=== PATIENT | female | born 1965 | race Caucasian/White ===

== ENCOUNTER 2017-10-12 19:01 | Emergency (ER) | payer OTHER ==
[2017-10-12 19:08] VITALS: BMI 34.9
[2017-10-12] MEDS ORDERED: SOLU-Medrol 125 MG VIAL IVP ONE (19:42)
[2017-10-12] MEDS ORDERED: SOLU-Medrol 125 MG VIAL ONE (19:43)
[2017-10-12] MEDS ORDERED: DUONEB 0.5 MG/3 MG NEB SCH (19:45)
[2017-10-12] MEDS ORDERED: DUONEB 0.5 MG/3 MG ONE (19:48)
--- NOTE | 2017-10-12 20:05 | DR.GENAD ---
HPI - PCP Primary Care Physician: nfd - Complaint/Symptoms Chief Complaint Doctors Comments: Patient with a history of asthma, gave herself two breathing treatment today and continues to wheeze. She denies a history of smoking. Chief Complaint:: can't breathe/wheezing Self Treatment fo Chief Complaint: 2 breathing treatments at home - Source History Provided: Patient - Mode of Arrival Mode of Arrival: Ambulatory - Timing Onset of Chief Complaint: 10/11/17 PMH - PMH Past Medical History: Yes Past Medical History: Hypertension, Hypothyroidism Past Surgical History: Yes Surgical History: Cholecystectomy, Ortho Surgery, Thyroidectomy Past Surgical History Comment: left knee, repair - Family History History of Family Medical Conditions: Yes Family Medical History: Hypertension - Social History Does patient currently use any type of tobacco product: No Have you used tobacco products in the last 12 months: No Type of Tobacco Use: None Does any household member use tobacco: No Alcohol Use: Occasionally Do you use any recreational Drugs:: No Lives With: Family Lives Where: Home - infectious screening In the last 2 months have you had wt loss of >10#?: NO Have you had fever, night sweats or hemotysis?: No Have you traveled outside the country in the last 6 months?: No Isolation: Standard ROS - Review of Systems Eyes: No Symptoms Reported ENTM: No Symptoms Reported Respiratoy: No Symptoms Reported Cardiovascular: No Symptoms Reported Gastrointestinal/Abdominal: No Symptoms Reported Genitourinary: No Symptoms Reported Neurological: No Symptoms Reported Musculoskeletal: No Symptoms Reported Integumentary: No Symptoms Reported Hematologic/Lymphatic: No Symptoms Reported Endocrine: No Symptoms Reported Psychiatric: No Symptoms Reported All Other Systems: Reviewed and Negative PE - Vital Signs Vitals: Temperature 99.8 F Pulse Rate 78 Respiratory Rate 16 Blood Pressure 139/80 O2 Sat by Pulse Oximetry 100 - General General Appearance: Alert, In No Apparent Distress - Head Head Exam: Normal Inspection, Atraumatic - Eyes Eye exam: Normal Appearance, PERRL, EOMI - ENT ENT Exam: Normal Exam External Ear Exam: Normal External Inspection TM/Canal Exam: Bilateral Normal Nose Exam: Normal Nose Exam Mouth Exam: Normal Inspection Throat Exam: Normal Inspection - Neck Neck Exam: Normal Inspection - Chest Chest Inspection: Normal Inspection, Symmetric Chest Wall Rise - Respiratory Respiratory Exam: Normal Lung Sounds Bilat. negative: Accessory Muscle Use Respiratory Exam: Bilateral Wheezing (expiratory) - Cardiovascular Cardiovascular Exam: Regular Rate - Abdominal Exam Abdominal Exam: Normal Inspection Abdominal Tenderness: negative: RUQ, RLQ, LUQ, LLQ, Epigastrium, Suprapubic, Diffuse, Mild, Moderate, Severe, Other - Extremities Extremities Exam: Normal Inspection, Full ROM - Back Back Exam: Normal Inspection, Full ROM - Neurologic Neurological Exam: Alert, Oriented X3, CN II-XII Intact - Psychiatric Psychiatric Exam: Normal Affect - Skin Skin Exam: Warm, Dry, Intact Course - Reevaluation 1st: Improved ROR - XRAY XRAY Interpreted by: Radiologist (Chest: negative) - Diagnosis Discharge Problem: Acute asthma exacerbation Qualifiers: Asthma severity: mild Asthma persistence: unspecified Qualified Code(s): J45.901 - Unspecified asthma with (acute) exacerbation - Discharge Plan Condition: Stable - Follow ups/Referrals Follow ups/Referrals: [facility],None [Primary Care Provider] - 3 days - Instructions
--- NOTE | 2017-10-12 20:14 | RAD ---
HISTORY: Wheezing and cough Study: Portable chest Comparison: None Findings: The heart is normal. The pulmonary vessels are normal. The lungs are mildly hyperinflated. No consoli dation or effusion is seen. The bones are intact. IMPRESSION: 1. No acute cardiopulmonary disease. Reported By:
[2017-10-12 21:12] VITALS: BP 148/87
== END 2017-10-12 21:10 | disposition home or self-care (01) ==
LOC: ER 19:16
DX: J45.901 Unspecified asthma with (acute) exacerbation (principal)
CPT/HCPCS: 71045; 94640; 96365; 96374; 99283; A4222; J2930; J7620